=== PATIENT | male | born 2000 | race Two or more races ===

== ENCOUNTER 2020-09-03 20:47 | Emergency (ER) | payer MEDICAID ==
[~2020-09-03] VITALS: Ht 167.6 cm; Wt 101.3 kg
[2020-09-03 22:27] VITALS: BP 115/65
== END 2020-09-03 23:20 | disposition home or self-care (01) ==
LOC: ER 20:49
DX: S06.0X9A Concussion with loss of consciousness of unspecified duration, initial encounter (principal); S81.812A Laceration without foreign body, left lower leg, initial encounter; M25.512 Pain in left shoulder; V89.2XXA Person injured in unspecified motor-vehicle accident, traffic, initial encounter; Y93.89 Activity, other specified; Y92.89 Other specified places as the place of occurrence of the external cause; Y99.8 Other external cause status
CPT/HCPCS: 70450; 99284

== ENCOUNTER 2021-07-25 02:02 | Emergency (ER) | payer MEDICAID ==
[~2021-07-25] VITALS: Ht 167.6 cm; Wt 110.0 kg
[2021-07-25] MEDS ORDERED: normal saline 1000ml 1,000 ML IV ONE (02:35)
[2021-07-25] MEDS ORDERED: ondansetron/PF 4mg/2ml inj IV ONE (02:35)
[2021-07-25 03:06] LABS: BASOPHILS # (AUTO) 0.1 X10'3 (0-0.2); BASOPHILS % (AUTO) 0.5 % (0-1); EOSINOPHILS % (AUTO) 0.2 % (0-6); HEMATOCRIT 47.6 % (42.0-52.0); HEMOGLOBIN 16.6 g/dl (14.0-17.9); LYMPHOCYTES # (AUTO) 2.4 X10'3 (1.1-4.8); LYMPHOCYTES % (AUTO) 15.6 % (21-51); MEAN CORPUSCULAR HEMOGLOBIN 28.8 PG (27.0-31.0); MEAN CORPUSCULAR HGB CONC 34.9 g/dL (33.0-36.5); MEAN CORPUSCULAR VOLUME 82.5 FL (78-98); MEAN PLATELET VOLUME 8.7 FL (7.4-10.4); MONOCYTES % (AUTO) 6.5 % (2-12); NEUTROPHILS # (AUTO) 12.1 X10'3 (1.8-7.7); NEUTROPHILS % (AUTO) 77.2 % (42-75); PLATELET COUNT 431 X10'3 (140-440); RED BLOOD COUNT 5.76 X10'6 (4.70-6.10); RED CELL DISTRIBUTION WIDTH 12.3 % (11.5-14.5); WHITE BLOOD COUNT 15.6 X10'3 (4.5-11.0)
[2021-07-25 03:13] LABS: ALANINE AMINOTRANSFERASE 65 U/L (12-78); ALBUMIN 4.7 G/DL (3.4-5.0); ALKALINE PHOSPHATASE 97 IU/L (46-116); ANION GAP 11 (8-16); ASPARTATE AMINO TRANSFERASE 90 U/L (10-37); BILIRUBIN,TOTAL 0.9 MG/DL (0.1-1.0); BLOOD UREA NITROGEN 17 MG/DL (7-18); BUN/CREATININE RATIO 13.8 (5.4-32.0); CALCIUM 9.2 MG/DL (8.5-10.1); CHLORIDE 96 MMOL/L (99-107); CREATININE 1.23 MG/DL (0.60-1.10); GLUCOSE 133 MG/DL (70-104); LIPASE 66 U/L (73-393); POTASSIUM 3.1 MMOL/L (3.5-5.1); SODIUM 135 MMOL/L (135-145); TOTAL CARBON DIOXIDE 27.7 MMOL/L (24-32); TOTAL PROTEIN 9.4 G/DL (6.4-8.2); eGFR 74 ML/MIN
[2021-07-25] MEDS ORDERED: potassium Cl 20 mEq SR tablet PO STA (04:02)
[2021-07-25 04:21] VITALS: BP 124/84
== END 2021-07-25 04:27 | disposition home or self-care (01) ==
LOC: ER 02:03
DX: R10.84 Generalized abdominal pain (principal); E87.6 Hypokalemia; R07.0 Pain in throat; R11.10 Vomiting, unspecified; Z90.49 Acquired absence of other specified parts of digestive tract; Z20.822 Contact with and (suspected) exposure to COVID-19
CPT/HCPCS: 36415; 80053; 83690; 85025; 87635; 93005; 96361; 96374; 99284; C9803; J2405; J7030

== ENCOUNTER 2022-07-05 07:34 | Emergency (ER) | payer OTHER, MEDICAID ==
[~2022-07-05] VITALS: Ht 167.6 cm; Wt 100.0 kg
[2022-07-05 07:53] VITALS: BP 142/104
[2022-07-05] MEDS ORDERED: ibuprofen 200mg tablet PO ONE (09:15)
== END 2022-07-05 10:03 | disposition home or self-care (01) ==
LOC: ER 07:34
DX: M25.572 Pain in left ankle and joints of left foot (principal); Z98.890 Other specified postprocedural states; V89.2XXA Person injured in unspecified motor-vehicle accident, traffic, initial encounter; Y93.89 Activity, other specified; Y92.89 Other specified places as the place of occurrence of the external cause; Y99.8 Other external cause status
CPT/HCPCS: 29515; 73610; 99283; L1930

== ENCOUNTER 2024-01-11 01:43 | Emergency (ER) | payer MEDICAID ==
[~2024-01-11] VITALS: Ht 165.1 cm; Wt 104.5 kg
[2024-01-11 01:44] VITALS: BP 129/86; PULSE 90; RESP 16; TEMP 98; O2SAT 96
== END 2024-01-11 03:30 | disposition left against medical advice (07) ==
LOC: ER 01:43
DX: N50.812 Left testicular pain (principal); Z53.21 Procedure and treatment not carried out due to patient leaving prior to being seen by health care provider